=== PATIENT | female | born 1975 | race Caucasian/White ===

== ENCOUNTER 2018-04-14 15:57 | Emergency (ER) | payer BC ==
[~2018-04-14] VITALS: Ht 172.7 cm; Wt 58.5 kg
[~2018-04-14 15:57] MED LIST: CYCL10TA7; NO NEW MEDS; TRAM50TA2
[2018-04-14 16:03] VITALS: Ht 172.7 cm; Wt 58.5 kg
[2018-04-14] MEDS ORDERED: ACET/BUTAL/CAFF TAB PO ONE (21:30)
[2018-04-14] MEDS ORDERED: CETI10CA PO (21:36)
[2018-04-14] MEDS ORDERED: ABCC1C PO (21:36)
[2018-04-14] MEDS ORDERED: FLUT9.9S NASAL (21:36)
--- NOTE | 2018-04-14 21:47 | ERD ---
ER Documentation Chief Complaint Chief Complaint Complains of severe headache x 2 days HPI 42-year-old female presents here in emergency department for complaints of headache for 2 days, has history of migraine headache. Patient also has been having runny nose nasal congestion, itchy nose. Patient denies any fever or chills. Patient did not take any medications to help with symptoms. Patient denies any cough. Patient denies any loss of consciousness nausea vomiting. ROS All systems reviewed and are negative except as per history of present illness. Medications Home Meds Active Scripts Bqlqqoksseedo-Dqyaxohseh-Nxhajzei-Codeine* (Fioricet w/Codeine*) [id number] Cap, 1 CAP PO Q4H PRN for PAIN LEVEL 1-5, #10 CAP Prov:HOLLEY KIRBY NP 04/14/18 Cetirizine Hcl* (Zyrtec*) 10 Mg Capsule, 10 MG PO DAILY, #30 TAB.CHEW Prov:HOLLEY KIRBY NP 04/14/18 Fluticasone Propionate (Flonase Allergy Relief) 9.9 Ml [place].susp, 1 SPRAY NASAL BID, #1 BOTTLE TO EACH NOSTRIL Prov:HOLLEY KIRBY NP 04/14/18 Reported Medications [No New Meds] No Conflict Check 02/20/11 Tramadol HCl (Tramadol HCl) 50 Mg Tablet 12/15/09 Cyclobenzaprine Hcl* (Cyclobenzaprine Hcl*) 10 Mg Tablet 12/15/09 Allergies Allergies: Coded Allergies: No Known Drug Allergies (Verified Allergy, Mild, 08/27/11) PMhx/Soc History of Surgery: Yes (Tubal Ligation) Anesthesia Reaction: No Hx Neurological Disorder: No Hx Respiratory Disorders: No Hx Cardiac Disorders: No Hx Psychiatric Problems: No Hx Miscellaneous Medical Probl: No Hx Alcohol Use: No Hx Substance Use: No Hx Tobacco Use: No FmHx Family History: No diabetes, No coronary disease, No other Physical Exam Vitals Vital Signs Date Temp Pulse Resp B/P (MAP) Pulse Ox O2 O2 Flow FiO2 Time Delivery Rate 04/14/18 96.6 100 20 130/67 94 16:03 (88) Physical Exam GENERAL: The patient is well developed and appropriate for usual state of health, in no apparent distress. HEENT: Atraumatic. Ears: Normal tympanic membrane, no erythema or bulging. No ear canal swelling. No ear discharge. Nose: Pale boggy nares with clear nasal discharge. Throat: oropharynx clear. No tonsillar swelling or tonsillar exudates. No lymphadenopathy. CHEST: Clear to auscultation bilaterally. There are no rales, wheezes or rhonchi. HEART: Regular rate and rhythm. No murmurs, clicks, rubs or gallops. No S3 or S4. ABDOMEN: Soft, nontender and nondistended. Good bowel sounds. No rebound or guarding. No gross peritonitis. No gross organomegaly or masses. No Norman sign or McBurney point tenderness. BACK: No midline or flank tenderness. EXTREMITIES: Equal pulses bilaterally. There is no peripheral clubbing, cyanosis or edema. No focal swelling or erythema. Full range of motion. Grossly neurovascularly intact. NEURO: Alert and oriented. Cranial nerves 2-12 intact. Motor strength in all 4 extremities with 5/5 strength. Sensation grossly intact. Normal speech and gait. Negative Romberg sign. Negative pronator drift. SKIN: There is no apparent rash or petechia. The skin is warm and dry. HEMATOLOGIC AND LYMPHATIC: There is no evidence of excessive bruising or lymphedema. No gross cervical, axillary, or inguinal lymphadenopathy. Results 24 hrs Current Medications Medications Dose Sig/Dre Start Time Status Last (Trade) Ordered Route PRN Stop Time Admin Dose Reason Admin 1 tab ONCE ONCE 04/14/18 DC Acetaminophen PO 21:30 / 04/14/18 21:31 Butalbital/ Caffeine (Fioricet) Patient was given medication for pain here in emergency department, after treatment, patient verbalized feeling much better. Patient's pain is improved. Procedures/MDM Medical Decision Making: Patient symptoms are consistent with migraine headache, also possibly sinus headache patient also has rhinitis symptoms. There is low suspicion for neurological emergencies at this time since patients neurologic exam is normal. Patient did not have any altered level consciousness, vomiting, changes in balance or memory and did not have any head injury. CT scan of the brain not indicated at this time. Patient was advised to follow-up with primary care doctor in 1-2 days for reevaluation of symptoms. Patient was advised to return to emergency department for any worsening symptoms. Rx: Fioricet with codeine, Zyrtec, Flonase Dispostion: Home. Stable Disclaimer: Inadvertent spelling and grammatical errors are likely due to EHR/dictation software use and do not reflect on the overall quality of patient care. Also, please note that the electronic time recorded on this note does not necessarily reflect the actual time of the patient encounter. Departure Diagnosis: Primary Impression: Allergic rhinitis Allergic rhinitis trigger: unspecified Allergic rhinitis seasonality: unspecified Qualified Codes: J30.9 - Allergic rhinitis, unspecified Additional Impression: Headache Headache type: unspecified Headache chronicity pattern: acute headache Intractability: not intractable Qualified Codes: R51 - Headache Condition: Stable Patient Instructions: Self-Care for Headaches, Allergic Rhinitis HOLLEY KIRBY NP Apr 14, 2018 21:47
[2018-04-14 21:58] VITALS: BP 131/80; PULSE 99; RESP 19
== END 2018-04-14 22:35 | disposition home or self-care (01) ==
LOC: FTE 15:57
DX: J30.9 Allergic rhinitis, unspecified (principal)
CPT/HCPCS: 99282; Z7610